=== PATIENT | male | born 1975 | race Caucasian/White ===

== ENCOUNTER 2016-07-14 10:18 | Emergency (ER) | payer OTHER ==
[~2016-07-14] VITALS: Ht 180.3 cm; Wt 108.9 kg
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
--- NOTE | 2016-07-14 11:39 | RADIOLOGY REPORT ---
EXAMINATION: XR SHOULDER, RIGHT CLINICAL INFORMATION: Trauma. Evaluate for dislocation. COMPARISON: None TECHNIQUE: AP external rotation, Grashey, and scapular Y views of the right shoulder. FINDINGS: There is anterior inferior dislocation of the humeral head with respect to the glenoid. Bone alignment is otherwise normal. No fracture is seen. IMPRESSION: Anterior inferior dislocation of the humeral head with respect to the glenoid.
[2016-07-14] MEDS ORDERED: PERCOCET 5-3251 EACH PO (12:37)
[2016-07-14] MEDS ORDERED: MOBIC15 M1 PO (12:37)
--- NOTE | 2016-07-14 12:42 | RADIOLOGY REPORT ---
EXAMINATION: XR SHOULDER, RIGHT CLINICAL INFORMATION: Postreduction. COMPARISON: Right shoulder performed earlier today at 10:53 AM. TECHNIQUE: Two views of the right shoulder. FINDINGS: The exam is slightly suboptimal. However there is normal alignment of right shoulder joint status post reduction. There are periarticular marginal osteophytes and mild loss of before meals joint space. No visible fracture seen. IMPRESSION: Normal alignment of right shoulder joint status post reduction.
[2016-07-14] MEDS ORDERED: DEXTROAMP-AMPHE30 MG PO (12:55)
[2016-07-14 13:13] VITALS: BP 148/74
== END 2016-07-14 13:13 ==
LOC: ERH 10:18
DX: S43.011A Anterior subluxation of right humerus, initial encounter (principal); X50.9XXA Other and unspecified overexertion or strenuous movements or postures, initial encounter; Y93.89 Activity, other specified; Y92.9 Unspecified place or not applicable
CPT/HCPCS: 73030-RT; 96374; 96375